=== PATIENT | female | born 1995 | race Caucasian/White ===

== ENCOUNTER 2017-06-27 22:24 | Inpatient (IN) | payer MEDICAID, SELFPAY ==
[2017-06-29 20:03] VITALS: BP 116/52; PULSE 98; RESP 18; TEMP 36.9; O2SAT 98; BMI 31.8
--- NOTE | 2017-06-30 10:45 | HMH.DCSUM ---
General - General Admission date: 06/28/17 Discharge date: 06/30/17 HPI HPI: She is a 21-year-old 1 now para 1 who is 37 weeks gestational age. She came in in active labor. She progressed to full dilation and delivered spontaneously a live born female child. The baby weighed 6 lbs. 5 oz. with Apgars of 9 at 1 and 9 at 5 minutes. She has done well post and has remained afebrile throughout hospitalization. She is eating and drinking and ambulating she is bottlefeeding. She has a positive blood, she is rubella immune and was group B Streptococcus negative Objective Vital signs: Temp Pulse Resp BP Pulse Ox 98.4 F 98 H 18 116/52 98 06/29/17 20:03 06/29/17 20:03 06/29/17 20:03 06/29/17 20:03 06/29/17 20:03 no acute distress Results Labs on day of discharge: Labs from last 24 hours 06/29/17 06/27/17 06/27/17 07:28 19:15 19:15 WBC 15.6 H RBC 4.51 Hgb 11.1 L D 14.7 D Hct 32.6 L 42.3 MCV 93.7 RDW 13.7 Plt Count 236 MPV 8.4 Gran % 77.1 Gran # 12.0 H Total Counted 100 Lymphocytes % 15.9 Monocytes % 4.9 Eosinophils % 2.1 Basophils % 0.2 Neutrophils 81 H Band Neutrophils 6 Lymphocytes (Manual) 9 L Lymphocytes # 2.5 Monocytes (Manual) 3 Monocytes # 0.8 Eosinophils # 0.3 Eosinophils # (Manual) 1 Basophils # 0.0 RBC/WBC/PLT Morphology NORMAL Platelet Estimate NORMAL PUBS MCHC 34.9 Urine Color Urine Appearance Urine pH Ur Specific [place] Urine Protein Urine Ketones Urine Blood Urine Nitrate Urine Bilirubin Urine Urobilinogen Ur Leukocyte Esterase Urine RBC Urine WBC Ur Squamous Epith Cells Urine Bacteria Urine Glucose Opiates Screen Urine Methadone Screen Barbiturates Phencyclidine Screen Amphetamines Screen Benzodiazepines Screen Cocaine Screen Marijuana (THC) Screen Antibody Screen NEGATIVE MCH 32.7 H Miscellaneous Test POSITIVE Blood Type (Ref Lab) B 06/27/17 06/27/17 19:10 19:10 WBC RBC Hgb Hct MCV RDW Plt Count MPV Gran % Gran # Total Counted Lymphocytes % Monocytes % Eosinophils % Basophils % Neutrophils Band Neutrophils Lymphocytes (Manual) Lymphocytes # Monocytes (Manual) Monocytes # Eosinophils # Eosinophils # (Manual) Basophils # RBC/WBC/PLT Morphology Platelet Estimate PUBS MCHC Urine Color YELLOW Urine Appearance SL CLOUDY Urine pH 6.5 Ur Specific [place] 1.020 Urine Protein NEGATIVE Urine Ketones NEGATIVE Urine Blood TRACE-INTACT Urine Nitrate NEGATIVE Urine Bilirubin NEGATIVE Urine Urobilinogen 0.2 Ur Leukocyte Esterase 3+ H Urine RBC NONE Urine WBC 50-100 Ur Squamous Epith Cells 20-50 Urine Bacteria 2+ Urine Glucose NEGATIVE Opiates Screen NEGATIVE Urine Methadone Screen NEGATIVE Barbiturates NEGATIVE Phencyclidine Screen NEGATIVE Amphetamines Screen NEGATIVE Benzodiazepines Screen NEGATIVE Cocaine Screen NEGATIVE Marijuana (THC) Screen NEGATIVE Antibody Screen MCH Miscellaneous Test Blood Type (Ref Lab) Meds Home Medications Medication Instructions Recorded Confirmed Type Ferrous Sulfate [Ferrous Sulfate 325 mg PO DAILY 06/29/17 06/29/17 History 325mg Tablet] Vits96/Iron Fum/Folic 1 tab PO DAILY 06/29/17 06/29/17 History [ MVI w/Iron Tablet] Sertraline HCl [Zoloft] 50 mg PO DAILY 06/29/17 06/29/17 History Allergies Allergy/AdvReac Type Severity Reaction Status Date / Time No Known Allergies Allergy Unverified 06/27/17 18:54 Disposition Disposition: Home, Self-Care
== END 2017-06-30 13:35 | disposition home or self-care (01) | DRG 775 ==
PROVIDERS: Admitting Provider Family Medicine; Visit Provider Obstetrics & Gynecology
DX: O70.0 First degree perineal laceration during delivery (principal); O99.343 Other mental disorders complicating pregnancy, third trimester; F32.9 Major depressive disorder, single episode, unspecified; Z37.0 Single live birth; Z3A.37 37 weeks gestation of pregnancy
CPT/HCPCS: 59409; 36415; 59025; 80305; 81001; 85014; 85018; 85025; 86850; 86900; 86901; 87086

== ENCOUNTER 2022-01-02 22:40 | Emergency (ER) | payer MEDICAID, SELFPAY ==
[2022-01-02 22:41] VITALS: BP 114/57; PULSE 69; RESP 18; TEMP 38.8; O2SAT 98; BMI 36.0
--- NOTE | 2022-01-02 23:01 | ECG_ITS ---
APPROVED REPORT Exam: Resting ECG HR:60 bpm ECG Measurements Heart Rate 60 AXES WV 110 P 18 QRSd 98 QRS 25 QT 378 T 27 QTc 379 Conclusion SINUS RHYTHM WITH MARKED SINUS ARRHYTHMIA WITH SHORT WV INTERVAL NONSPECIFIC T-WAVE ABNORMALITY BORDERLINE ECG UNCONFIRMED REPORT Electronically signed by : Félix Muller MD 01/03/2022 17:40:38
[2022-01-02 23:11] LABS: Influenza A, PCR Not Detected (NotDetected); Influenza B, PCR Not Detected (NotDetected)
[2022-01-02 23:11] LABS: Basophils # 0.1 K/mm3 (0-0.2); Basophils % 1.7 % (0.1-2.0); Eosinophils # 0.1 K/mm3 (0.0-0.4); Eosinophils % 1.1 % (0.1-12.0); Hematocrit 46.9 % (37.0-47.0); Hemoglobin 16.5 g/dL (12.2-16.2); Lymphocytes # 0.6 K/mm3 (0.7-4.5); Lymphocytes % 12.2 % (10-50); Mean Corpuscular HGB Conc 35.1 g/dL (31.8-35.4); Mean Corpuscular Hemoglobin 30.6 pg (27.0-31.2); Mean Platelet Volume 7.5 fl (7.4-10.4); Monocytes # 0.4 K/mm3 (0.1-1.0); Monocytes % 8.6 % (1.7-9.3); Neutrophils # 3.6 K/mm3 (1.8-7.8); Neutrophils % 76.5 % (37.0-80.0); Platelet Count 204 K/mm3 (142-424); Red Blood Count 5.39 M/mm3 (4.20-5.40); Red Cell Distribution Width 12.9 % (11.5-17.5); White Blood Count 4.7 K/mm3 (4.8-10.8)
--- NOTE | 2022-01-02 23:20 | HMH.EDURI ---
ED Disposition Clinical Impression: COVID-19 Disposition: Home, Self-Care Condition on Discharge: Good Instructions: DI for COVID-19 (Suspected or Confirmed ) Additional Instructions: fluids and use meds as directed Prescriptions: dexAMETHasone [Decadron] 6 mg PO DAILY #6 tab Transmission Status: Pending to [facility] Hydrocision Referrals: Steffen Velazquez [Primary Care Provider] - - Critical Care Critical Care Time: No Attestation: On 01/02/22, the high probability of a clinically significant, sudden or life threatening deterioration of the following system(s) required my full and direct attention, intervention and personal management. The time I documented below is in addition to time spent performing reported procedures but includes the following listed in this critical care notation. Medical Decision Making - Medical Records Medical records reviewed: Yes: I reviewed the patient's medical records. - [place] Inquiry Pt receiving controlled substance: No Vital Signs: 01/02/22 22:41 01/02/22 23:30 01/03/22 00:00 Temperature 101.8 F H Temperature Source Oral Pulse Rate 75 83 Pulse Rate [Right] 69 Respiratory Rate 18 Blood Pressure 122/74 97/60 L Blood Pressure [Right Arm] 114/57 L Blood Pressure Mean [Right Arm] 76 02 Sat by Pulse Oximetry 98 100 96 Oxygen Delivery Method Room Air Room Air 01/03/22 00:30 Temperature Temperature Source Pulse Rate 81 Pulse Rate [Right] Respiratory Rate Blood Pressure 96/57 L Blood Pressure [Right Arm] Blood Pressure Mean [Right Arm] 02 Sat by Pulse Oximetry 96 Oxygen Delivery Method Room Air - Lab Data Lab results reviewed: Yes: I reviewed the patient's lab results. Lab Results 01/02/22 23:00: WBC 4.7 L, RBC 5.39, Hgb 16.5 H, Hct 46.9, MCV 87.0, MCH 30.6, MCHC 35.1, RDW 12.9, Plt Count 204, MPV 7.5, Neut % (Auto) 76.5, Lymph % (Auto) 12.2, [place] % (Auto) 8.6, Eos % (Auto) 1.1, Baso % (Auto) 1.7, Neut # (Auto) 3.6, Lymph # (Auto) 0.6 L, [place] # (Auto) 0.4, Eos # (Auto) 0.1, Baso # (Auto) 0.1, ESR 5 01/02/22 23:00: Urine HCG, Qual Negative 01/02/22 23:00: Sodium 134 L, Potassium 3.3 L, Chloride 100, Carbon Dioxide 21 L, Anion Gap 16.3 H, BUN 10, Creatinine 0.90, Estimated Creat Clear 136, Estimated GFR 77, Est GFR ( Amer) 93, Glucose 79, Calcium 9.0, Total Bilirubin 0.6, AST 37 H, ALT 25, Alkaline Phosphatase 98, Total Protein 7.0, Albumin 4.2, Globulin 2.8, Albumin/Globulin Ratio 1.5, Procalcitonin 0.118 01/02/22 23:00: Lactate 1.7 01/02/22 23:00: Urine Color Yellow, Urine Appearance Clear, Urine pH 5.5, Ur Specific [place] >= 1.030, Urine Protein Trace, Urine Glucose (UA) Negative, Urine Ketones 1+, Urine Blood 3+, Urine Nitrate Positive, Urine Bilirubin Negative, Urine Urobilinogen 0.2, Ur Leukocyte Esterase Negative, Urine RBC 5-10, Urine WBC 5-10, Ur Squamous Epith Cells 3-5, Amorphous Sediment 1+, Urine Bacteria 2+, Urine Mucus 1+ 01/02/22 23:02: SARS-CoV-2 (PCR) Detected A, Influenza A Untype (PCR) Not detected, Influenza Type B (PCR) Not detected Result diagrams: 01/02/22 23:00 01/02/22 23:00 Orders (Tests/Meds): ED MEDICATIONS Generic Name Dose Route Start Last Admin Trade Name Freq PRN Reason Stop Dose Admin Sodium Chloride 1,000 mls @ 999 mls/hr 01/02/22 23:30 01/02/22 23:26 Sod Chlor 0.9% 1000ml Bag IV 01/03/22 00:30 999 mls/hr .Q1H1M CHANDA Administration Discontinued Medications Generic Name Dose Route Start Last Admin Trade Name Freq PRN Reason Stop Dose Admin Acetaminophen 1,000 mg 01/02/22 23:20 01/02/22 23:27 Acetaminophen 500mg Tab PO 01/02/22 23:21 1,000 mg ONCE ONE Administration Ketorolac Tromethamine 30 mg 01/02/22 23:20 01/02/22 23:27 Ketorolac 30mg/Ml Vial IV 01/02/22 23:21 30 mg ONCE ONE Administration Methylprednisolone Sodium Succinate 125 mg 01/02/22 23:20 01/02/22 23:27 Methylprednisolone Sod Succ 125mg Vial IV 01/02/22 23:21 125 mg ONCE ONE Administrati
[2022-01-02 23:22] LABS: Microscopic, Urine URINE MICROSCOPIC (MICROSCOPIC)
[2022-01-02 23:25] LABS: Urine Pregnancy, HCG Qual. Negative (Negative)
[2022-01-02 23:26] LABS: Alanine Aminotransferase 25 U/L (12-78); Albumin Level 4.2 g/dl (3.5-5.0); Albumin/Globulin Ratio 1.5 (1.1-1.8); Alkaline Phosphatase 98 U/L (38-126); Anion Gap 16.3 mEq/L (5-15); Aspartate Amino Transferase 37 U/L (14-36); Bilirubin,Total 0.6 mg/dl (0.2-1.3); Blood Urea Nitrogen 10 mg/dl (7-17); Carbon Dioxide 21 mmol/L (22.0-30.0); Chloride 100 mmol/L (98-107); Creatinine Clearance Estimated 136 mL/min (50-200); Estimated Glomerular Filt Rate 77 ml/min (>60); GFR (African American) 93 ML/MIN (>60); Globulin 2.8 g/dL (1.3-3.2); Glucose 79 mg/dl (74-100); Potassium 3.3 mmoL/L (3.5-5.1); Sodium 134 mmol/L (136-145)
[2022-01-02 23:30] VITALS: BP 122/74; PULSE 75; O2SAT 100
[2022-01-02 23:33] LABS: Appearance,Urine CLEAR (Clear); Bilirubin,Urine Negative (Negative); Blood, Urine 3+ (Negative); Color,Urine YELLOW (Yellow); Glucose,Urine (UA) Negative (Negative); Ketones,Urine 1+ (Negative); Leukocyte Esterase,Urine Negative (Negative); Nitrate,Urine POSITIVE (Negative); PH,Urine 5.5 (5.0-8.5); Protein,Urine TRACE (Negative); Specific Gravity, Urine >= 1.030 (1.005-1.030); Urobilinogen,Urine 0.2 EU/dl (0.2)
[2022-01-02 23:45] LABS: Procalcitonin 0.118 ng/mL (0.0-2.0)
[2022-01-02 23:46] LABS: Amorphous Sediment,Urine 1+ /lpf; Bacteria,Urine 2+ /lpf; Mucus,Urine 1+ /lpf
[2022-01-02 23:47] LABS: Erythrocyte Sedimentation Rate 5 mm/hr (0-20)
[2022-01-03] VITALS: BP 97/60; PULSE 83; O2SAT 96
[2022-01-03 00:02] LABS: Coronavirus 19, PCR Detected (NotDetected)
[2022-01-03 00:30] VITALS: BP 96/57; PULSE 81; O2SAT 96
[2022-01-03 00:53] LABS: Lactic Acid 1.7 mmol/L (0.7-2.1)
[2022-01-03 01:28] VITALS: BP 100/62; PULSE 60; RESP 17; TEMP 36.8; O2SAT 96
== END 2022-01-03 02:27 | disposition home or self-care (01) ==
PROVIDERS: Emergency Provider Emergency Medicine; PCP Pediatrics
DX: U07.1 COVID-19 (principal)
CPT/HCPCS: 80053; 81001; 81025; 83605; 84145; 85025; 85651; 87040; 87086; 87088; 87186; 93005; 96361; 96374; 96375; 99284; C9803; U0003; U0005

== ENCOUNTER 2023-01-26 18:09 | Emergency (ER) | payer SELFPAY ==
[2023-01-26 18:19] VITALS: BP 129/63; PULSE 66; RESP 18; TEMP 36.8; O2SAT 100; BMI 31.1
--- NOTE | 2023-01-26 18:20 | PC.NURSE ---
per warehouse selector Dr. Tsai has spoke with Dr. Muller, pt is going to be admitted [facility] to [facility] and Dr. Tsai has entered admission orders. notified pt primary nurse.
--- NOTE | 2023-01-26 18:44 | XR_ITS ---
PROCEDURE INFORMATION: Exam: XR Left Foot Exam date and time: 01/26/2023 7:00 PM Age: 27 years old Clinical indication: Pain; Foot; Left; Additional info: Fall injury, left foot pain TECHNIQUE: Imaging protocol: Radiologic exam of the left foot. Views: 3 or more views. COMPARISON: No relevant prior studies available. FINDINGS: Bones/joints: No acute fracture or dislocation. Soft tissues: Normal. IMPRESSION: No acute fracture or dislocation.
--- NOTE | 2023-01-26 18:44 | XR_ITS ---
PROCEDURE INFORMATION: Exam: XR Left Knee Exam date and time: 01/26/2023 6:57 PM Age: 27 years old Clinical indication: Pain; Knee; Left; Additional info: Fall injury TECHNIQUE: Imaging protocol: Radiologic exam of the left knee. Views: 3 views. COMPARISON: No relevant prior studies available. FINDINGS: Bones/joints: No acute fracture or dislocation. Soft tissues: Normal. IMPRESSION: No acute fracture or dislocation.
--- NOTE | 2023-01-26 18:44 | XR_ITS ---
PROCEDURE INFORMATION: Exam: XR Left Ankle Exam date and time: 01/26/2023 6:58 PM Age: 27 years old Clinical indication: Pain; Ankle; Left; Additional info: Fall injury TECHNIQUE: Imaging protocol: Radiologic exam of the left ankle. Views: 3 or more views. COMPARISON: CR Knee R 01/26/2023 6:57 PM FINDINGS: Bones/joints: No acute fracture or dislocation. Soft tissues: Normal. IMPRESSION: No acute fracture or dislocation.
--- NOTE | 2023-01-26 18:44 | HMH.EDGENADL ---
Discharge Plan Disposition Patient Disposition: Home, Self-Care Prescriptions Prescriptions: New ibuprofen 800 mg tablet 800 mg PO TID PRN (Reason: pain) 7 Days Qty: 20 0RF No Action sertraline [Zoloft] 50 MG tablet 50 mg PO DAILY dexamethasone 6 MG tablet 6 mg PO DAILY Qty: 6 0RF Referrals Follow up/Referrals: Steffen Velazquez [Primary Care Provider] - See instructions Activity Restrictions/Add. Instructions Additional Instructions/Restrictions: Please bear weight as tolerated using your Aircast and your crutches. You may follow-up with orthopedic surgery in 1 to 2 weeks if you are not having a trajectory of improvement. Clinical Impressions Clinical Impression: Ankle sprain and strain, Knee sprain Discharge ED Provider: Adela [facility] Adult HPI General Chief complaint: Extremity Injury, Lower Stated complaint: [id number] INJURED LEFT ANKLE Time Seen by Provider: 01/26/23 18:42 Mode of Arrival: Ambulatory Source of Information: Patient Limitations: No Limitations Description of Symptoms (Recalled from ER Triage Doc. by RN): pt presents to ED stating this am around 1100 she was at work when she slipped and fell. pt c/o right ankle and knee pain. History of Present Illness HPI narrative: Patient is a 27-year-old female here with right ankle and knee and foot pain after twisting injury at work. Has had some mild swelling on the lateral aspect of her foot and ankle. Also states she is having difficulty walking with the pain. Denies injuries elsewhere denies any syncopal episode. Pain is mild Related Data Home Medications Medication Instructions Recorded Confirmed sertraline 50 mg tablet (Zoloft) 50 mg PO DAILY DEPRESSION 06/29/17 06/29/17 Previous Rx's Medication Instructions Recorded dexamethasone 6 mg tablet 6 mg PO DAILY #6 tabs 01/03/22 ibuprofen 800 mg tablet 800 mg PO TID PRN pain 7 days #20 01/26/23 tabs Allergies Allergy/AdvReac Type Severity Reaction Status Date / Time No Known Allergies Allergy Unverified 12/30/17 08:37 [facility] Disclaimer: The information contained in this section may have been updated after the patient was seen, as this information can be updated by other users. Social History Smoking Status: Current every day smoker tobacco type: cigarettes alcohol intake: never counseling provided: none current occupational status: unemployed Travel in the last 8 weeks: None ROS Obtained: Yes All systems reviewed & no additional complaints except as documented Physical Exam General General appearance: alert Respiratory Respiratory exam: Present normal lung sounds bilaterally Cardiovascular Cardiovascular exam: Present regular rate; Absent tachycardia Extremities Exam Extremities exam: Present other (Tenderness to palpation over the right knee ankle and foot on the lateral aspect no significant soft tissue swelling from an objective standpoint neurovascular intact) Neurological Exam Neurological exam: Present alert and oriented X3 Medical Decision Making [place] Inquiry Pt receiving controlled substance: No Vital Signs: 01/26/23 18:19 Temperature 98.2 F Temperature Source Oral Pulse Rate [Right Radial] 66 Respiratory Rate 18 Blood Pressure [Right Arm] 129/63 Blood Pressure Mean [Right Arm] 85 Blood Pressure Source [Right Arm] Automatic Cuff Blood Pressure Position [Right Arm] Sitting 02 Sat by Pulse Oximetry 100 Oxygen Delivery Method Room Air Orders (Tests/Meds): ED MEDICATIONS Discontinued Medications Generic Name Dose Route Start Last Admin Trade Name Freq PRN Reason Stop Dose Admin Acetaminophen 1,000 mg 01/26/23 18:45 01/26/23 19:25 Acetaminophen 500mg Tab PO 01/26/23 18:46 1,000 mg ONCE ONE Administration Ibuprofen 800 mg 01/26/23 18:45 01/26/23 19:24 Ibuprofen 400 Mg Tablet PO 01/26/23 18:46 800 mg ONCE ONE Administration ORDERS Category Date Time Status X
--- NOTE | 2023-01-26 19:10 | PC.NURSE ---
PC from radiology staff states that she changed orders to correct extremity
[2023-01-26 20:17] VITALS: BP 119/65; PULSE 70; RESP 18; TEMP 36.8
== END 2023-01-26 20:23 | disposition home or self-care (01) ==
PROVIDERS: Emergency Provider Student in an Organized Health Care Education/Training Program; PCP Pediatrics
DX: S93.401A Sprain of unspecified ligament of right ankle, initial encounter (principal); S96.911A Strain of unspecified muscle and tendon at ankle and foot level, right foot, initial encounter; S83.91XA Sprain of unspecified site of right knee, initial encounter; F17.210 Nicotine dependence, cigarettes, uncomplicated; W01.0XXA Fall on same level from slipping, tripping and stumbling without subsequent striking against object, initial encounter; Y99.0 Civilian activity done for income or pay
CPT/HCPCS: 73562; 73610; 73630; 99284